=== PATIENT | female | born 2000 | race Two or more races ===

== ENCOUNTER 2023-09-28 14:34 | Emergency (ER) | payer OTHER ==
[~2023-09-28] VITALS: Ht 154.9 cm; Wt 54.4 kg
[2023-09-28] MEDS ORDERED: EFFEXOR XR150 MG (14:47)
[2023-09-28] MEDS ORDERED: TRAZODONE HCL50 MG (14:47)
[2023-09-28 16:26] LABS: HEMATOCRIT 39.6 % (36.0-45.00); HEMOGLOBIN 13.4 g/dL (12.0-15.00); MEAN CORPUSCULAR HEMOGLOBIN 30.5 pg (27.00-32.0); MEAN CORPUSCULAR HGB CONC 33.8 g/dl (32.0-36.0); PLATELET COUNT 254 K/uL (150-450); RED CELL DISTRIBUTION WIDTH 11.9 % (11.5-14.5)
[2023-09-28] MEDS ORDERED: ONDANSETRON HCL 2 MG/ML VIAL ONE (16:29)
[2023-09-28] MEDS ORDERED: ONDANSETRON HCL 2 MG/ML VIAL IV ONE (16:30)
[2023-09-28 16:47] LABS: ANION GAP 14 (10.0-20.0); BLOOD UREA NITROGEN 14 mg/dL (7-18); BUN CREA RATIO 14 (7.0-25.0); CALCIUM 9.7 mg/dL (8.5-10.1); CARBON DIOXIDE 22 mEq/L (21-32); CHLORIDE 109 mmol/L (98-107); GFR 69.99; GLUCOSE FASTING 111 mg/dL (65-100); OSMOLALITY SERUM 282 MOSM/KG (275-295); POTASSIUM 3.95 mEq/L (3.5-5.1); SODIUM 141 mmol/L (136-145)
[2023-09-28 17:06] LABS: PH,URINE 6.5 (5.0-8.0); URINE APPEARANCE Clear; URINE BILIRRUBIN Negative (NEGATIVE); URINE BLOOD Negative; URINE COLOR Yellow; URINE GLUCOSE Negative (NEGATIVE); URINE LEUKOCYTE Negative; URINE NITRATE Negative; URINE PROTEIN Negative (NEGATIVE)
[2023-09-28 17:07] LABS: URINE BACTERIA 708.9 uL (0.0-1933); URINE EPITHELIAL CELLS 12.3 uL (0.0-38.8); URINE RBC 5.1 uL (0.0-20.8); URINE WBC 5.7 uL (0.0-23.2)
[2023-09-28 17:09] LABS: URINE CAST 0.15 uL (0.0-1.40); URINE KETONE 40 (NEGATIVE)
[2023-09-28 17:11] LABS: HCG QUANTITATIVE < 1 mUI/mL (1-3)
[2023-09-28] MEDS ORDERED: hydrOXYzine PAMOATE 50 MG CAPSULE PO ONE ×2 (17:37→17:45)
== END 2023-09-28 18:33 | disposition home or self-care (01) ==
LOC: ER 14:34
PROVIDERS: Emergency Medicine; General Practice
DX: R55 Syncope and collapse (principal); E16.2 Hypoglycemia, unspecified